=== PATIENT | female | born 1955 | race American Indian/Alaskan Native ===

== ENCOUNTER 2019-09-13 05:49 | Observation (INO) | payer MEDICAID ==
--- NOTE | 2019-09-13 06:47 | Emergency Department Report ---
ED Chest Pain HPI - General Stated Complaint: CHEST PAIN Time Seen by Provider: 09/13/19 06:44 - History of Present Illness Initial Comments: 64-year-old -[place] female presents to the emergency department via EMS from home with complaint of some midsternal nonradiating chest pain that started about 2 AM. It is associated with some mild shortness of breath the patient denies any nausea, vomiting, back pain, fever or diaphoresis. She did not take anything at home but she did receive a full dose aspirin and 3 sublingual nitroglycerin with EMS that did not improve her discomfort. She describes it as a heaviness. No recent travel or sick contacts at home. She has a past medical history of hypertension, GERD, gout, paroxysmal A. fib. She is not currently on any blood thinners. - Related Data Allergies Allergy/AdvReac Type Severity Reaction Status Date / Time codeine Allergy Rash Verified 09/13/19 07:07 Heart Score - HEART Score History: Moderately suspicious EKG: Normal Age: 45-65 Risk factors: 1-2 risk factors Troponin: < normal limit HEART Score: 3 - Critical Actions Critical Actions: 0-3 pts:0.9-1.7%risk of adverse cardiac event.Candidate for [facility] ED Review of Systems ROS: Stated complaint: CHEST PAIN Other details as noted in HPI Comment: All other systems reviewed and negative Constitutional: denies: chills, fever Eyes: denies: eye pain, vision change ENT: denies: ear pain, throat pain Respiratory: shortness of breath. denies: cough Cardiovascular: chest pain. denies: palpitations Gastrointestinal: denies: abdominal pain, vomiting Genitourinary: denies: dysuria, discharge Musculoskeletal: denies: back pain, arthralgia Skin: denies: rash, lesions Neurological: denies: headache, weakness ED Physical Exam - Other Other exam information: GENERAL: The patient is well-developed well-nourished. HENT: Normocephalic. Atraumatic. Patient has moist mucous membranes. EYES: Extraocular motions are intact. NECK: Supple. Trachea is midline. CHEST/LUNGS: Clear to auscultation. There is no respiratory distress noted. HEART/CARDIOVASCULAR: Regular. There is no tachycardia. There is no murmur. ABDOMEN: Abdomen is soft, nontender. Patient has normal bowel sounds. There is no abdominal distention. SKIN: Skin is warm and dry. NEURO: The patient is awake, alert, and oriented. The patient is cooperative. The patient has no focal neurologic deficits. Normal speech. MUSCULOSKELETAL: There is no tenderness or deformity. There is no evidence of acute injury. ED Course Vital Signs 09/13/19 09/13/19 09/13/19 06:30 06:43 06:45 Temperature 98.1 F Pulse Rate 54 L Respiratory 14 Rate Blood Pressure O2 Sat by Pulse 94 Oximetry 09/13/19 09/13/19 09/13/19 07:01 07:15 07:31 Temperature Pulse Rate 51 L 56 L 55 L Respiratory 10 L 12 13 Rate Blood Pressure 159/69 159/69 159/69 O2 Sat by Pulse 99 100 99 Oximetry 09/13/19 09/13/19 09/13/19 07:45 08:01 08:15 Temperature Pulse Rate 54 L 53 L 54 L Respiratory 12 13 Rate Blood Pressure 154/57 155/59 155/58 O2 Sat by Pulse 100 Oximetry 09/13/19 09/13/19 09/13/19 08:31 08:45 09:01 Temperature Pulse Rate Respiratory Rate Blood Pressure 155/58 156/60 156/60 O2 Sat by Pulse 99 100 Oximetry 09/13/19 09/13/19 09/13/19 09:31 10:01 10:59 Temperature Pulse Rate Respiratory Rate Blood Pressure 155/58 156/60 146/58 O2 Sat by Pulse 97 100 100 Oximetry 09/13/19 11:00 Temperature Pulse Rate Respiratory Rate Blood Pressure 146/58 O2 Sat by Pulse 100 Oximetry DANIELLE score - Danielle Score Age > 65: (0) No Aspirin use within the Past 7 Days: (1) Yes 3 or more CAD Risk Factors: (0) No 2 or more Angina events in past 24 hrs: (1) Yes Known CAD with more than 50% Stenosis: (0) No Elevated Cardiac Markers: (0) No ST Deviation Greater than 0.5mm: (0) No DANIELLE Score: 2 ED Medical Decision Making - Lab Data Result diagrams: 09/13/19 06:53 09/13/19 06:53 - EKG Data -: EKG Interpreted by Ks EKG shows normal: sinus rhythm, axis, intervals (prolonged TX interval), QRS complexes, ST-T waves Rate: bradycardia (51 bpm) - EKG Data When compared to previous EKG there are: previous EKG unavailable Interpretation: other (sinus kaykay, prolonged TX interval. No STEMI) - Radiology Data Radiology results: report reviewed, image reviewed interpreted by me: Chest x-ray does not show any acute process. There are no pleural effusions, obvious pneumonia and there is no pneumothorax. Ventilation/perfusion scan the lungs INDICATION: Chest pain and elevated d-dimer TECHNIQUE: The patient was administered 12.38 mCi of xenon-133 for the ventilation portion of the study and 5.4 mCi of technetium 99 MAA for the perfusion phase FINDINGS: The ventilation phase shows minimal air trapping at the medial left lung base. The perfusion phase shows no focal segmental or subsegmental perfusion defects and there is no evidence of pulmonary embolism. - Medical Decision Making This patient presents with some acute midsternal chest pain at around 2 AM. She appeared to have some improvement after sublingual nitros given in route. EKG did not show any signs of ST elevation VT. Chest x-ray does not show any pneumonia, pleural effusions, pneumothorax, focal consolidation, or any other acute process. Patient's labs have been mostly unremarkable including negative troponins 2 but she did have a slightly elevated an equivocal d-dimer. For this reason a ventilation perfusion scan was done that was low probability for a pulmonary embolism. While the patient's chest pain decreased, she now complains of a heaviness on her chest. She has a moderate heart score of 3. Vital signs stable throughout her ED course. The patient will be admitted to the hospital for further evaluation and treatment of her chest pain and was accepted for admission by the hospitalist, Dr. Trevino. - Differential Diagnosis VT, PE, GERD, pneumonia Critical Care Time: No Critical care attestation.: If time is entered above; I have spent that time in minutes in the direct care of this critically ill patient, excluding procedure time. ED Disposition Clinical Impression: Angina at rest, Acute chest pain Hypertension Qualifiers: Hypertension type: essential hypertension Qualified Code(s): I10 - Essential (primary) hypertension Disposition: OP ADMIT IP TO THIS HOSP Is pt being admited?: Yes Condition: Fair Time of Disposition: 11:48
[2019-09-13 07:22] LABS: Basophils % (Auto) 0.8 % (0.0-1.8); Eosinophils # (Auto) 0.2 K/mm3 (0.0-0.4); Eosinophils % (Auto) 2.7 % (0.0-4.3); Hematocrit 39.3 % (30.3-42.9); Hemoglobin 12.9 gm/dl (10.1-14.3); Lymphocytes # (Auto) 2.3 K/mm3 (1.2-5.4); Lymphocytes % (Auto) 34.6 % (13.4-35.0); Mean Corpuscular HGB Conc 33 % (30-34); Mean Corpuscular Volume 86 fl (79-97); Monocytes # (Auto) 0.6 K/mm3 (0.0-0.8); Platelet Count 256 K/mm3 (140-440); Red Blood Count 4.57 M/mm3 (3.65-5.03); Red Cell Distribution Width 15.8 % (13.2-15.2)
[2019-09-13 07:25] LABS: BUN/Creatinine Ratio 10; Blood Urea Nitrogen 9 mg/dL (7-17); Calcium 9.3 mg/dL (8.4-10.2); Hemolysis Index 3
--- NOTE | 2019-09-13 07:28 | XRay Report ---
. CHEST 1 VIEW INDICATION: CP. COMPARISON: 06/02/2008. FINDINGS: Support devices: None. Heart: Within normal limits. Lungs/Pleura: No acute air space or interstitial disease. Additional findings: None. IMPRESSION: No acute abnormality. Signer Name: Keith Chance MD Signed: 09/13/2019 7:24 AM Workstation Name: [id number]
--- NOTE | 2019-09-13 11:15 | Nuclear Medicine Report ---
Ventilation/perfusion scan the lungs INDICATION: Chest pain and elevated d-dimer TECHNIQUE: The patient was administered 12.38 mCi of xenon-133 for the ventilation portion of the briana dy and 5.4 mCi of technetium 99 MAA for the perfusion phase FINDINGS: The ventilation phase shows minimal air trapping at the medial left lung base. The perfusio n phase shows no focal segmental or subsegmental perfusion defects and there is no evidence of pulmon jyothi embolism. Signer Name: Rudolph Khalil MD Signed: 09/13/2019 11:11 AM Workstation Name: [id number]
--- NOTE | 2019-09-13 12:43 | History and Physical Report ---
History of Present Illness Chief complaint: My chest hurts History of present illness: 64 YO Female with Obesity, HTN, GERD, GOUT, Paroxysmal Atrial Fib Not on therapeutic anticoagulation presents to ED for evaluation. Pt states that she has experienced pain in her chest over the past 1 days. Pt states that pain awoke her from sleep around 0200hrs. Pt states that pain is 6/10, Midsternal, Nonradiating, not worsened with exertion, not relieved with rest, but is relieved with Nitro tablets. Pt acknowledges shortness of breath, and decreased exercise tolerance. EMS notified, and upon arrival the patient was found to be in distress. Pt transported to [facility]. Pt seen and evaluated in ED and found to have Angina as well as symptoms consistent with Diastolic CHF. Pt admitted to telemetry. Cardiology consulted in ED. No prior admission for review. No medication listed for reconciliation at time of admission. Pt denies fever, chills, NVD, Trauma, BRBPR, Productive Cough, BRBPR, Syncope, Unintentional weight loss, night sweats, or recent ill contacts. Past History Past Medical History: other (see HPI) Past Surgical History: No surgical history, Other (reviewed) Social history: , lives with family. denies: smoking, alcohol abuse, prescription drug abuse Family history: hypertension Medications and Allergies Allergies Allergy/AdvReac Type Severity Reaction Status Date / Time codeine Allergy Rash Verified 09/13/19 07:07 Review of Systems Constitutional: no weight loss, no weight gain, no fever, no chills Ears, nose, mouth and throat: no ear pain, no ear discharge, no tinnitis, no decreased hearing, no nose pain Cardiovascular: chest pain, shortness of breath, decreased exercise tolerance, no orthopnea, no syncope Gastrointestinal: no abdominal pain, no nausea, no vomiting, no diarrhea, no constipation Genitourinary Female: no pelvic pain, no flank pain, no menorrhagia, no dysuria, no urinary frequency, no urgency Rectal: no pain, no incontinence, no bleeding Musculoskeletal: no neck stiffness, no neck pain, no shooting arm pain, no arm numbness/tingling, no low back pain, no shooting leg pain Integumentary: no rash, no pruritis, no redness, no sores, no wounds Neurological: no transient paralysis, no paralysis, no weakness, no parathesias, no numbness, no tingling, no seizures Psychiatric: no anxiety, no memory loss, no sleep disturbances, no insomnia, no hypersomnia Endocrine: no cold intolerance, no heat intolerance, no polyphagia, no polydipsia, no nocturia Hematologic/Lymphatic: no easy bruising, no easy bleeding, no lymphadenopathy, no lymphedema Allergic/Immunologic: no urticaria, no allergic rhinitis, no wheezing, no anaphylaxis Exam - Constitutional Vitals: Temp Pulse Resp BP Pulse Ox 98.1 F 54 L 13 146/58 100 09/13/19 06:30 09/13/19 08:15 09/13/19 08:15 09/13/19 11:00 09/13/19 11:00 General appearance: Present: mild distress, obese - EENT Eyes: Present: PERRL ENT: hearing intact, clear oral mucosa - Neck Neck: Present: supple, normal ROM - Respiratory Respiratory effort: normal Respiratory: bilateral: CTA - Cardiovascular Heart Sounds: Present: S1 & S2. Absent: rub, click - Extremities Extremities: pulses symmetrical, No edema Peripheral Pulses: within normal limits - Abdominal General gastrointestinal: Present: soft, non-tender, non-distended, normal bowel sounds Female genitourinary: Present: normal - Integumentary Integumentary: Present: clear, warm, dry - Musculoskeletal Musculoskeletal: gait normal, strength equal bilaterally - Psychiatric Psychiatric: appropriate mood/affect, intact judgment & insight - Neurologic Neurologic: CNII-XII intact, moves all extremities Results - Labs CBC & Chem 7: 09/13/19 06:53 09/13/19 06:53 Labs: Abnormal lab results 09/13/19 09/13/19 09/13/19 Range/Units 06:53 06:53 06:53 RDW 15.8 H (13.2-15.2) % [place] % (Auto) 9.0 H (0.0-7.3) % D-Dimer 257.77 H (0-234) ng/mlDDU Glucose 113 H (65-100) mg/dL Assessment and Plan - Patient Problems (1) Diastolic CHF Current Visit: Yes Status: Suspected Qualifiers: Heart failure chronicity: acute Qualified Code(s): I50.31 - Acute diastolic (congestive) heart failure Plan to address problem: Admit to telemetry, echo, strict I/O, daily weight, BNP, d dimer, supplemental oxygen, magnesium level, pulse oximetry, afterload reduction, cardiology consulted. (2) Obesity (BMI 30.0-34.9) Current Visit: Yes Status: Acute Plan to address problem: balanced diet, increased physical activity at discharge (3) Paroxysmal atrial fibrillation Current Visit: Yes Status: Acute Plan to address problem: Rate control, supportive care, thyroid panel, (4) Angina at rest Current Visit: Yes Status: Acute Plan to address problem: serial cardiac enzymes, ekg, telemetry, D dimer, lipid panel, VQ Scan negative for PE (5) Hypertension Current Visit: Yes Status: Acute Qualifiers: Hypertension type: essential hypertension Qualified Code(s): I10 - Essential (primary) hypertension Plan to address problem: Monitor bp q shift, continue medical management (6) DVT prophylaxis Current Visit: Yes Status: Acute Plan to address problem: SCD to BLE while in bed, supportive care.
[2019-09-13 13:57] LABS: Free T4 (Free Thyroxine) 1.27 ng/dL (0.76-1.46)
[2019-09-13 15:51] LABS: Chol/HDL Ratio 3.27 %
[2019-09-14] MEDS ORDERED: traMADol 50 MG TAB PO PRN (07:26)
--- NOTE | 2019-09-14 07:30 | Progress Note ---
Assessment and Plan Assessment and plan: 64-year-old woman who presents to the hospital with chest pain EKG shows no acute ST changes Chest x-ray no acute findings VQ scan, low probability for PE plan Rate is controlled, thyroid function tests are normal will check dig level Cardiology consulted to determine coronary risk stratification given chest pain. LDL at goal at 72 Diagnosis Chest pain Paroxysmal atrial fibrillation, rate controlled, Hypercoagulable state htn History Interval history: Review of systems Constitutional: No fevers, no malaise, no joint pains CVS: No chest pain, no orthopnea, no pedal edema GI: No abdominal pain, no diarrhea, no vomiting, no constipation Respiratory: , no wheezing, no coughing Hospitalist Physical - Physical exam Narrative exam: General.: Appears well, no distress, nontoxic HEENT: Moist mucous membranes, extraocular muscles intact, no lymphadenopathy Neck: supple Cardiac: S1-S2 heard Lungs: clear to auscultation bilaterally Abdomen: soft , nontender, nondistended, bowel sounds positive Extremities: no edema clubbing or cyanosis Skin: no rash or lesions Neurologic: no gross focal deficits Psych: calm, and cooperative - Constitutional Vitals: Temp Pulse Resp BP Pulse Ox 98.1 F 63 20 102/48 95 09/14/19 04:25 09/14/19 04:25 09/14/19 04:25 09/14/19 04:25 09/14/19 04:25 General appearance: Present: mild distress, obese Results - Labs CBC & Chem 7: 09/13/19 06:53 09/13/19 06:53 Labs: Laboratory Last Values WBC 6.5 K/mm3 (4.5-11.0) 09/13/19 06:53 RBC 4.57 M/mm3 (3.65-5.03) 09/13/19 06:53 Hgb 12.9 gm/dl (10.1-14.3) 09/13/19 06:53 Hct 39.3 % (30.3-42.9) 09/13/19 06:53 MCV 86 fl (79-97) 09/13/19 06:53 MCH 28 pg (28-32) 09/13/19 06:53 MCHC 33 % (30-34) 09/13/19 06:53 RDW 15.8 % (13.2-15.2) H 09/13/19 06:53 Plt Count 256 K/mm3 (140-440) 09/13/19 06:53 Lymph % (Auto) 34.6 % (13.4-35.0) 09/13/19 06:53 [place] % (Auto) 9.0 % (0.0-7.3) H 09/13/19 06:53 Eos % (Auto) 2.7 % (0.0-4.3) 09/13/19 06:53 Baso % (Auto) 0.8 % (0.0-1.8) 09/13/19 06:53 Lymph # 2.3 K/mm3 (1.2-5.4) 09/13/19 06:53 [place] # 0.6 K/mm3 (0.0-0.8) 09/13/19 06:53 Eos # 0.2 K/mm3 (0.0-0.4) 09/13/19 06:53 Baso # 0.0 K/mm3 (0.0-0.1) 09/13/19 06:53 Seg Neutrophils % 52.9 % (40.0-70.0) 09/13/19 06:53 Seg Neutrophils # 3.4 K/mm3 (1.8-7.7) 09/13/19 06:53 D-Dimer 257.77 ng/mlDDU (0-234) H 09/13/19 06:53 Sodium 145 mmol/L (137-145) 09/13/19 06:53 Potassium 4.1 mmol/L (3.6-5.0) 09/13/19 06:53 Chloride 106.8 mmol/L (98-107) 09/13/19 06:53 Carbon Dioxide 28 mmol/L (22-30) 09/13/19 06:53 Anion Gap 14 mmol/L 09/13/19 06:53 BUN 9 mg/dL (7-17) 09/13/19 06:53 Creatinine 0.9 mg/dL (0.7-1.2) 09/13/19 06:53 Estimated GFR > 60 ml/min 09/13/19 06:53 BUN/Creatinine Ratio 10 % 09/13/19 06:53 Glucose 113 mg/dL (65-100) H 09/13/19 06:53 Calcium 9.3 mg/dL (8.4-10.2) 09/13/19 06:53 Magnesium 2.20 mg/dL (1.7-2.3) 09/13/19 12:52 Troponin T < 0.010 ng/mL (0.00-0.029) 09/13/19 20:31 NT-Pro-B Natriuret Pep 49.79 pg/mL (0-900) 09/13/19 12:52 Triglycerides 109 mg/dL (2-149) 09/13/19 Unknown Cholesterol 118 mg/dL (50-199) 09/13/19 Unknown LDL Cholesterol Direct 72 mg/dL (50-130) 09/13/19 Unknown HDL Cholesterol 36 mg/dL (40-59) L 09/13/19 Unknown Cholesterol/HDL Ratio 3.27 % 09/13/19 Unknown TSH 1.350 mlU/mL (0.270-4.200) 09/13/19 12:52 Free T4 1.27 ng/dL (0.76-1.46) 09/13/19 12:52 Active Medications - Current Medications Current Medications: Generic Name Dose Route Start Last Admin Trade Name Freq PRN Reason Stop Dose Admin Allopurinol 300 mg 09/14/19 10:00 Zyloprim PO DAILY [facility] Aspirin 81 mg 09/14/19 10:00 Baby Aspirin PO QDAY [facility] Atorvastatin Calcium 40 mg 09/13/19 22:00 09/13/19 22:02 Lipitor PO 40 mg QHS YING Administration Carvedilol 3.125 mg 09/14/19 10:00 Coreg PO BID [facility] Digoxin 0.0001 mg 09/14/19 10:00 Lanoxin PO DAILY [facility] Miscellaneous Medication 1 drop 09/14/19 14:00 Brimonidine Tartrate [Alphagan P 0.1%] OS Q8HR YING Miscellaneous Medication 40 mg 09/14/19 10:00 Lovastatin [Altoprev] PO DAILY [facility] Miscellaneous Medication 150 mg 09/14/19 10:00 Ranitidine Hcl [Zantac] PO BID [facility] Sodium Chloride 10 ml 09/13/19 14:17 Sodium Chloride Flush Syringe 10 Ml IV PRN PRN LINE FLUSH
[2019-09-14] MEDS ORDERED: NON-FORMULARY EACH (Lovastatin [Altoprev] 40 MG) PO SCH (10:00)
[2019-09-14] MEDS ORDERED: ASPIRIN EC 325 MG TAB PO SCH (10:00)
[2019-09-14] MEDS ORDERED: DIGOXIN 0.125 MG TAB PO SCH (10:00)
[2019-09-14] MEDS ORDERED: NON-FORMULARY EACH (Ranitidine Hcl [Zantac] 150 MG) PO SCH (10:00)
--- NOTE | 2019-09-14 10:24 | Progress Note ---
Subjective Date of service: 09/14/19 Interval history: CONSULT DICTATED. RECOMM. STRESS THALLIUM AM Objective Vital Signs Temp Pulse Resp BP BP Pulse Ox 09/14/19 08:24 18 09/14/19 08:00 58 L 09/14/19 04:25 98.1 F 63 20 102/48 95 09/14/19 00:00 69 09/13/19 23:56 98.4 F 65 20 108/43 96 09/13/19 23:13 20 99 09/13/19 19:27 98.2 F 20 152/63 09/13/19 16:48 62 09/13/19 16:44 18 98 09/13/19 16:43 98.0 F 60 18 152/59 100 09/13/19 15:05 55 L 18 141/44 100 09/13/19 14:21 151/54 100 09/13/19 14:11 154/51 98 09/13/19 14:01 154/51 97 09/13/19 13:51 151/54 97 09/13/19 13:41 151/54 100 09/13/19 13:40 60 16 151/84 100 09/13/19 13:31 151/54 100 09/13/19 13:21 138/47 100 09/13/19 13:11 143/53 100 09/13/19 13:01 143/53 100 09/13/19 12:51 143/53 98 09/13/19 12:41 150/52 100 09/13/19 12:31 138/47 99 09/13/19 12:21 137/62 99 09/13/19 12:11 154/56 98 09/13/19 12:01 150/52 97 09/13/19 11:51 154/56 99 09/13/19 11:41 148/122 97 09/13/19 11:31 148/122 100 09/13/19 11:21 150/60 99 09/13/19 11:11 146/58 98 09/13/19 11:00 146/58 100 09/13/19 10:59 146/58 100 - Labs and Meds Lipids 09/13/19 Range/Units Unknown Triglycerides 109 (2-149) mg/dL Cholesterol 118 (50-199) mg/dL HDL Cholesterol 36 L (40-59) mg/dL Cholesterol/HDL Ratio 3.27 %
[2019-09-14] MEDS: carvediloL 3.125 MG TAB PO SCH ×2 (10:37→22:35)
[2019-09-14] MEDS: FAMOTIDINE 20 MG TAB PO SCH ×2 (10:38→22:35)
[2019-09-14] MEDS: ASPIRIN 81 MG TAB CHEW PO SCH (10:38)
[2019-09-14] MEDS: allopurinoL 300 MG TAB PO SCH (10:38)
--- NOTE | 2019-09-14 10:59 | Consultation ---
HISTORY OF PRESENT ILLNESS: The patient is a 64-year-old female with history of obesity, hypertension, reflux, gout and paroxysmal atrial fibrillation. She describes prolonged substernal chest discomfort with some mild shortness of breath that seemed to improve with sublingual nitroglycerin administration. She is moderately active and does not describe any exertional chest pain, shortness of breath or fatigue. She does have occasional lightheadedness. There has been no claudication or edema. There is no history of heart disease such as coronary artery disease or heart failure. She does have reflux. She describes insomnia, but no snoring. There have been no strokes or smoking. She does not describe any clearcut tenderness of the precordium. PAST MEDICAL NAD SURGICAL HISTORY: None. SOCIAL HISTORY: Smoking: None. Alcohol: No heavy use. FAMILY HISTORY: Hypertension. ALLERGIES: CODEINE. REVIEW OF SYSTEMS: There is history of gout. There are no neurologic symptoms. She did not describe any GI disorders. She does not describe any peripheral vascular disease or lung disease. PHYSICAL EXAMINATION: GENERAL: Well-developed, mildly overweight, in no acute distress, alert, oriented, cooperative, mental status normal. EYES, NOSE, AND THROAT: Unremarkable. NECK: Reveals no JVD, no bruits. Neck is supple. No masses. LUNGS: Clear. No labored respirations. HEART: Regular rhythm, S4 gallop, grade 2 systolic murmur. ABDOMEN: Soft, nontender. No masses. EXTREMITIES: No cyanosis, clubbing, edema. Peripheral pulses are intact, but diminished. NEUROLOGIC: Symmetrical. SKIN: Clear. DIAGNOSTIC DATA: EKG, no ischemic changes. IMPRESSION: 1. Prolonged chest discomfort and shortness of breath that may represent unstable angina. There are no acute electrocardiographic changes or cardiac enzyme changes. The patient does have risk factors. Stress test will be recommended. 2. Question of the possibility of congestive heart failure: Echo, preliminary findings are normal ejection fraction with left ventricular hypertrophy. 3. Mild hyperlipidemia. 4. Hypertension. 5. History of gout. 6. History of, paroxysmal atrial fibrillation: Stable. 7. Insomnia. 8. Possible peripheral vascular disease, on exam. 9. Systolic murmur. PLAN: Review the echocardiogram. Stress thallium study tomorrow. Thank you for this consultation. We will follow the patient. [facility]# [id number] JDS/NTS
[2019-09-14] MEDS: BRIMONIDINE 0.15% OPHTH SOLN OU SCH ×2 (13:32→22:37)
[2019-09-14] MEDS ORDERED: BRIMONIDINE TARTRATE OS SCH (14:00)
[2019-09-14] MEDS ORDERED: PRAVASTATIN 40 MG TAB PO SCH (22:00)
[2019-09-15] MEDS ORDERED: REGADENOSON 0.4 MG/5 ML INJ IV ONE (07:08)
[2019-09-15] MEDS: BRIMONIDINE 0.15% OPHTH SOLN OU SCH (07:59)
--- NOTE | 2019-09-15 09:50 | Discharge Summary ---
Providers - Providers Date of Admission: 09/13/19 11:48 Attending physician: THA REYES MD 09/13/19 Consult to Cardiac Rehabilitation [CONS] Routine Reason For Exam: Phase I 09/13/19 14:17 Consult to Cardiology [CONS] Routine Consulting Provider: JESUS BESS Reason For Exam: Angina/CHF [facility] Condition: Fair Hospital course: 64-year-old woman who presents to the hospital with chest pain EKG shows no acute ST changes Chest x-ray no acute findings VQ scan, low probability for PE plan Rate is controlled, thyroid function tests are normal dig level at goal, cholesterol 118, LDL 73 stress test done per cardiology recs which was negative LDL at goal at 72 Diagnosis Chest pain likely due to costochondritis Paroxysmal atrial fibrillation, rate controlled, Hypercoagulable state htn Disposition: - TO HOME OR SELFCARE Time spent for discharge: 33 mins Core Measure Documentation - Palliative Care Palliative Care/ Comfort Measures: Not Applicable - Core Measures Any of the following diagnoses?: none Exam - Constitutional Vitals: Temp Pulse Resp BP Pulse Ox 97.9 F 58 L 18 113/50 95 09/15/19 03:06 09/15/19 08:00 09/15/19 03:06 09/15/19 03:06 09/15/19 03:06 General appearance: Present: no acute distress, well-nourished - EENT Eyes: Present: PERRL ENT: hearing intact, clear oral mucosa - Neck Neck: Present: supple, normal ROM - Respiratory Respiratory effort: normal Respiratory: bilateral: CTA - Cardiovascular Heart Sounds: Present: S1 & S2. Absent: rub, click - Extremities Extremities: pulses symmetrical, No edema Peripheral Pulses: within normal limits - Abdominal General gastrointestinal: Present: soft, non-tender, non-distended, normal bowel sounds Female genitourinary: Present: normal - Integumentary Integumentary: Present: clear, warm, dry - Musculoskeletal Musculoskeletal: gait normal, strength equal bilaterally - Psychiatric Psychiatric: appropriate mood/affect, intact judgment & insight - Neurologic Neurologic: CNII-XII intact, moves all extremities Plan [facility] [Primary Care Provider] - 3-5 Days
[2019-09-15 12:23] VITALS: BP 132/63
[2019-09-15] MEDS: allopurinoL 300 MG TAB PO SCH (13:21)
[2019-09-15] MEDS: ASPIRIN 81 MG TAB CHEW PO SCH (13:22)
[2019-09-15] MEDS: carvediloL 3.125 MG TAB PO SCH (13:23)
--- NOTE | 2019-09-15 13:43 | Event Note ---
Date: 09/15/19 Patient underwent a Lexiscan thallium stress test, normal myocardial perfusion study, normal left ventricle systolic function with ejection fraction of 58%.
--- NOTE | 2019-09-15 22:22 | Treadmill Report ---
THALLIUM STRESS TEST REPORT. LEFT VENTRICLE: Left ventricular chamber size is within normal spread. Perfusion study demonstrates homogeneous uptake of the tracer in all segments, no significant defects identified. Gated analysis demonstrates normal left ventricular systolic function, ejection fraction 58%. CONCLUSION: Normal myocardial perfusion study. JOB# [id number] CA/NTS
== END 2019-09-15 15:45 | disposition home or self-care (01) ==
LOC: ED 05:49 → 4A 11:48
PROVIDERS: ADMIT Internal Medicine; ATTEND Internal Medicine
DX: I11.0 Hypertensive heart disease with heart failure (principal); I50.31 Acute diastolic (congestive) heart failure; I48.0 Paroxysmal atrial fibrillation; I20.8 Other forms of angina pectoris; K21.9 Gastro-esophageal reflux disease without esophagitis; M10.9 Gout, unspecified; E78.5 Hyperlipidemia, unspecified; G47.00 Insomnia, unspecified; Z68.34 Body mass index [BMI] 34.0-34.9, adult; Z79.82 Long term (current) use of aspirin
CPT/HCPCS: 36415; 71045; 78452; 78582; 80048; 80061; 80162; 83735; 83880; 84439; 84443; 84484; 85025; 85379; 93005; 93010; 93017; 93306; 99284; A9270; A9502; A9540; A9558; G0378; J2785

== ENCOUNTER 2021-10-22 21:19 | Emergency (ER) | payer MEDICARE, MEDICAID ==
[2021-10-22 21:22] VITALS: BP 150/71
[2021-10-22] MEDS ORDERED: BUTALB/ACETAMINOPHEN/CAFFEINE TAB PO ONE (23:38)
[2021-10-22] MEDS ORDERED: IBUPROFEN 600 MG TAB PO ONE (23:38)
--- NOTE | 2021-10-23 00:54 | XRay Report ---
CHEST 2 VIEWS INDICATION / CLINICAL INFORMATION: Cough, fever. COMPARISON: 09/13/2019 FINDINGS: SUPPORT DEVICES: None. HEART / MEDIASTINUM: No significant abnormality. LUNGS / PLEURA: No significant pulmonary or pleural abnormality. No pneumothorax. ADDITIONAL FINDINGS: Incidentally noted diffuse idiopathic skeletal hyperostosis. IMPRESSION: 1. No acute findings. Signer Name: Caleb Berumen DO Signed: 10/23/2021 12:50 AM Workstation Name: [id number]
--- NOTE | 2021-10-23 04:04 | Emergency Department Report ---
- General Chief Complaint: Fever Stated Complaint: COLD SX Source: patient Mode of arrival: Ambulatory Limitations: No Limitations - History of Present Illness Initial Comments: Patient is a 66-year-old -[place] female with a history of hypertension, chronic osteoarthritis, hyperlipidemia and gouty arthropathy who presented to the ED with complaint of acute onset persistent diffuse body aches and pains, nasal and sinus congestion, frontal sinus pressure, sore throat, subjective fever and chills, mild dry cough for the last 3 days. Patient states that she has not been able to sleep tonight because of worsening diffuse body aches, sore throat and frontal sinus pressure and headache. Patient states that no one else at home is at similar symptoms. Patient denies nausea, vomiting, diarrhea, abdominal pain, chest pain, shortness of breath, dysuria, urinary frequency and urgency, dizziness, syncope or neck pain. MD Complaint: fever, cough, sore throat, rhinorrhea, nasal congestion, sinus pain, other (Headache; diffuse body aches and pains) -: Sudden, days(s) (3) Severity: severe Severity scale (0 -10): 7 Quality: sharp, aching Consistency: constant Improves With: nothing Worsens With: nothing Associated Symptoms: denies other symptoms, fever, chills, myalgias, headache, rhinorrhea, nasal congestion, sore throat, cough. denies: diaphoresis, stiff neck, chest pain, shortness of breath, abdominal pain, nausea, vomiting, diarrhea, dysuria, rash, confusion, right sweats, epistaxis, hoarseness, ear pain Treatments Prior to Arrival: "cold medicine" - Related Data Home Medications Medication Instructions Recorded Confirmed Last Taken Aspirin [Aspirin BABY CHEW TAB] 81 mg PO QDAY 09/13/19 09/13/19 09/12/19 Brimonidine Tartrate [Alphagan P 1 drop OS Q8HR 09/13/19 09/13/19 09/12/19 0.1%] Digoxin [Lanoxin] 0.125 mcg PO DAILY 09/13/19 09/13/19 09/12/19 Lovastatin [Altoprev] 40 mg PO DAILY 09/13/19 09/13/19 09/12/19 allopurinoL [Zyloprim] 300 mg PO DAILY 09/13/19 09/13/19 09/12/19 carvediloL [Coreg] 3.125 mg PO BID 09/13/19 09/13/19 09/12/19 raNITIdine HCL [Zantac] 150 mg PO BID 09/13/19 09/13/19 09/12/19 traMADoL [Ultram 50 MG tab] 50 mg PO Q12HR PRN 09/13/19 09/13/19 Unknown Previous Rx's Medication Instructions Recorded Last Taken Type Acetaminophen [Tylenol] 500 mg PO Q6HR PRN #30 tablet 10/23/21 Unknown Rx Azithromycin [Zithromax Z-LINO] 250 mg PO DAILY #6 tablet 10/23/21 Unknown Rx Benzonatate [Tessalon Perles] 100 mg PO Q8HR #30 capsule 10/23/21 Unknown Rx Cetirizine HCl [Zyrtec 10mg tab] 10 mg PO DAILY #30 tablet 10/23/21 Unknown Rx methylPREDNISolone [Medrol 4MG 4 mg PO DAILY #21 tab.ds.pk 10/23/21 Unknown Rx DOSEPAK (21 tabs)] Allergies Allergy/AdvReac Type Severity Reaction Status Date / Time codeine Allergy Rash Verified 09/13/19 14:21 ED Review of Systems ROS: Stated complaint: COLD SX Other details as noted in HPI Constitutional: chills, fever, malaise, weakness Eyes: denies: eye pain, eye discharge, vision change ENT: throat pain, congestion. denies: ear pain Respiratory: cough. denies: shortness of breath, wheezing Cardiovascular: denies: chest pain, palpitations Endocrine: no symptoms reported Gastrointestinal: denies: abdominal pain, nausea, vomiting, diarrhea Genitourinary: denies: urgency, dysuria, discharge Musculoskeletal: arthralgia, myalgia. denies: back pain, joint swelling Skin: denies: rash, lesions Neurological: headache. denies: weakness, paresthesias Psychiatric: denies: anxiety, depression Hematological/Lymphatic: denies: easy bleeding, easy bruising ED Past Medical Hx - Past Medical History Previous Medical History?: Yes Hx Hypertension: Yes Hx Arthritis: Yes Additional medical history: hypercholesterolemia, gout, irregular heartbeat - Surgical History Past Surgical History?: No - Social History Smoking Status: Never Smoker - Medications Home Medications: Home Medications Medication Instructions Recorded Confirmed Last Taken Type Aspirin [Aspirin BABY CHEW TAB] 81 mg PO QDAY 09/13/19 09/13/19 09/12/19 History Brimonidine Tartrate [Alphagan P 1 drop OS Q8HR 09/13/19 09/13/19 09/12/19 History 0.1%] Digoxin [Lanoxin] 0.125 mcg PO DAILY 09/13/19 09/13/19 09/12/19 History Lovastatin [Altoprev] 40 mg PO DAILY 09/13/19 09/13/19 09/12/19 History allopurinoL [Zyloprim] 300 mg PO DAILY 09/13/19 09/13/19 09/12/19 History carvediloL [Coreg] 3.125 mg PO BID 09/13/19 09/13/19 09/12/19 History raNITIdine HCL [Zantac] 150 mg PO BID 09/13/19 09/13/19 09/12/19 History traMADoL [Ultram 50 MG tab] 50 mg PO Q12HR PRN 09/13/19 09/13/19 Unknown History Acetaminophen [Tylenol] 500 mg PO Q6HR PRN #30 tablet 10/23/21 Unknown Rx Azithromycin [Zithromax Z-LINO] 250 mg PO DAILY #6 tablet 10/23/21 Unknown Rx Benzonatate [Tessalon Perles] 100 mg PO Q8HR #30 capsule 10/23/21 Unknown Rx Cetirizine HCl [Zyrtec 10mg tab] 10 mg PO DAILY #30 tablet 10/23/21 Unknown Rx methylPREDNISolone [Medrol 4MG 4 mg PO DAILY #21 tab.ds.pk 10/23/21 Unknown Rx DOSEPAK (21 tabs)] ED Physical Exam - General Limitations: No Limitations General appearance: alert, in no apparent distress - Head Head exam: Present: atraumatic, normocephalic, normal inspection - Eye Eye exam: Present: normal appearance, PERRL, EOMI Pupils: Present: normal accommodation - ENT ENT exam: Present: mucous membranes moist, TM's normal bilaterally, normal e xternal ear exam, other (Grossly congested nasal passages; palpable frontal sinus tenderness; mild erythematous oropharynx) - Neck Neck exam: Present: normal inspection, full ROM. Absent: tenderness, lymphadenopathy - Respiratory Respiratory exam: Present: normal lung sounds bilaterally. Absent: respiratory distress, wheezes, rales, rhonchi, stridor, chest wall tenderness, accessory muscle use, prolonged expiratory - Cardiovascular Cardiovascular Exam: Present: regular rate, normal rhythm, normal heart sounds. Absent: systolic murmur, diastolic murmur, rubs, gallop - GI/Abdominal GI/Abdominal exam: Present: soft, normal bowel sounds. Absent: tenderness, guarding, rebound, hyperactive bowel sounds, hypoactive bowel sounds, mass - Extremities Exam Extremities exam: Present: normal inspection, full ROM, normal capillary refill - Back Exam Back exam: Present: normal inspection, full ROM. Absent: tenderness, CVA tenderness (R), CVA tenderness (L), muscle spasm, paraspinal tenderness - Neurological Exam Neurological exam: Present: alert, oriented X3, CN II-XII intact, normal gait, reflexes normal - Psychiatric Psychiatric exam: Present: normal affect, normal mood - Skin Skin exam: Present: warm, dry, intact, normal color. Absent: rash ED Course Vital Signs 10/22/21 21:21 Temperature 97.6 F Pulse Rate 65 Respiratory 16 Rate Blood Pressure 150/71 O2 Sat by Pulse 97 Oximetry ED Medical Decision Making - Radiology Data Radiology results: report reviewed, image reviewed [facility] [address] [place] [address] XRay Report Signed Patient: HELEN ASENCIO MR#: [id number] : 1955 Acct:[id number] Age/Sex: 66 / F ADM Date: 10/22/21 Loc: ED Attending Dr: Ordering Physician: LASHANDA BENDER Date of Service: 10/22/21 Procedure(s): XR chest routine 2V Accession Number(s): [id number] cc: LASHANDA BENDER Fluoro Time In Minutes: CHEST 2 VIEWS INDICATION / CLINICAL INFORMATION: Cough, fever. COMPARISON: 09/13/2019 FINDINGS: SUPPORT DEVICES: None. HEART / MEDIASTINUM: No significant abnormality. LUNGS / PLEURA: No significant pulmonary or pleural abnormality. No pneumothorax. ADDITIONAL FINDINGS: Incidentally noted diffuse idiopathic skeletal hyperostosis. IMPRESSION: 1. No acute findings. Signer Name: Caleb Martinez DO Signed: 10/23/2021 12:50 AM Workstation Name: [id number] Transcribed By: LYNETTE Dictated By: CALEB MARTINEZ DO Electronically Authenticated By: CALEB MARTINEZ DO Signed Date/Time: 10/23/2149 DD/ TD/TT: - Medical Decision Making This is a 66-year-old -[place] female with a history of hypertension, chronic osteoarthritis, hyperlipidemia and gouty arthropathy who presented to the ED with complaint of acute onset persistent diffuse body aches and pains, nasal and sinus congestion, frontal sinus pressure, sore throat, subjective fever and chills, mild dry cough for the last 3 days. Patient states that she has not been able to sleep tonight because of worsening diffuse body aches, sore throat and frontal sinus pressure and headache. Patient states that no one else at home is at similar symptoms. In the ED, patient is alert and oriented x3 and is not in any distress. Patient was treated for pain in the ED. Rapid in fluenza and rapid strep test were negative. Chest x-ray showed no acute cardiopulmonary abnormalities or pneumonitis. On reevaluation, patient's pain is well controlled medication. Patient will discharge home on medications and advised to follow-up with her primary care physician in 7 to 10 days for reevaluation or return to the ED immediately if symptoms get worse. - Differential Diagnosis Sinusitis; influenza; strep pharyngitis; URI; bronchitis; pneumonia Critical care attestation.: If time is entered above; I have spent that time in minutes in the direct care of this critically ill patient, excluding procedure time. ED Disposition Clinical Impression: Acute upper respiratory infection Acute frontal sinusitis, unspecified Qualifiers: Recurrence: non-recurrent Qualified Code(s): J01.10 - Acute frontal sinusitis, unspecified Acute bronchitis Qualifiers: Bronchitis organism: other organism Qualified Code(s): J20.8 - Acute bronchitis due to other specified organisms Acute pharyngitis Qualifiers: Pharyngitis/tonsillitis etiology: other specified organisms Qualified Code(s): J02.8 - Acute pharyngitis due to other specified organisms Disposition: 01 HOME / SELF CARE / HOMELESS Is pt being admited?: No Does the pt Need Aspirin: No Condition: Stable Instructions: Acute Bronchitis (ED), Sinusitis, Adult, [id number], Upper Respiratory Infection, Adult, [id number], Acute Bronchitis, Adult, [id number], Pharyngitis, [id number] Additional Instructions: Rapid influenza and rapid strep test were negative. Chest x-ray showed no acute cardiopulmonary abnormalities or pneumonitis. Take medication with food, drink plenty of fluids and follow-up with your primary care physician in 7 to 10 days for reevaluation. Return to the ED immediately if symptoms get worse. Prescriptions: Acetaminophen [Tylenol] 500 mg PO Q6HR PRN #30 tablet PRN Reason: pain or fever methylPREDNISolone [Medrol 4MG DOSEPAK (21 tabs)] 4 mg PO DAILY #21 tab.ds.pk Benzonatate [Tessalon Perles] 100 mg PO Q8HR #30 capsule Azithromycin [Zithromax Z-LINO] 250 mg PO DAILY #6 tablet Cetirizine HCl [Zyrtec 10mg tab] 10 mg PO DAILY #30 tablet Referrals: WENDY PALACIOS MD [Primary Care Provider] - 3-5 Days Time of Disposition: 04:05 Print Language: THAI
== END 2021-10-23 04:54 | disposition home or self-care (01) ==
LOC: ED 21:19
DX: J06.9 Acute upper respiratory infection, unspecified (principal); J01.10 Acute frontal sinusitis, unspecified; J20.9 Acute bronchitis, unspecified; I10 Essential (primary) hypertension; M19.90 Unspecified osteoarthritis, unspecified site; E78.00 Pure hypercholesterolemia, unspecified; Z79.82 Long term (current) use of aspirin; Z88.5 Allergy status to narcotic agent; Z79.899 Other long term (current) drug therapy
CPT/HCPCS: 71046; 87116; 87400; 87430; 99283